=== PATIENT | male | born 1940 | race Caucasian/White ===

== ENCOUNTER → 2017-03-03 | Outpatient (CLI) | payer MEDICARE, MEDICAID ==
[~2017-03-03] MED LIST: ALDACTONE25 MG PO; AUGMENTIN 875875 MG PO; CARDIZEM CD300 MG PO; COUMADIN2 M1 PO; HYDROCODONE BIT1 T11 PO; JANTOVEN4 M1 PO; MASON25 MG PO; SIMVASTATIN10 MG PO; SIMVASTATIN40 MG PO; SPIRONOLACTONE50 M1 PO
[2017-03-03 08:23] LABS: URINE CREATININE TIMED 1558.05 mg/24HRS (950-2490)
[2017-03-03 08:25] LABS: BILIRUBIN NEGATIVE (NEGATIVE); BLOOD NEGATIVE (NEGATIVE); CLARITY CLEAR (CLEAR); COLOR YELLOW (YELLOW); GLUCOSE NEGATIVE (NEGATIVE); KETONE NEGATIVE (NEGATIVE); LEUKO ESTERASE NEGATIVE (NEGATIVE); NITRITE NEGATIVE (NEGATIVE); PH 6.5 (5.0-9.0); PROTEIN 2+ (NEGATIVE)
[2017-03-03 08:31] LABS: EPITHELIAL CELLS 0-2; URINE REFLEX COMMENT NO (NO)
[2017-03-03 08:48] LABS: BUN 13 mg/dl (7-24); CARBON DIOXIDE 28 mmol/L (21-32); CHLORIDE 101 mmol/L (98-107); EST GLOM FILT AFRICAN AMERICAN > 60 ml/min; GLUCOSE 100 mg/dL (65-99); POTASSIUM 4.6 mmol/L (3.5-5.1); SODIUM 142 mmol/L (136-145)
[2017-03-03 09:47] LABS: FOLIC ACID 21.98 ng/mL (>5.38)
== END | disposition home or self-care (01) ==
LOC: LAB 07:42
PROVIDERS: Family Medicine
DX: N28.1 Cyst of kidney, acquired (principal); R80.9 Proteinuria, unspecified; D53.9 Nutritional anemia, unspecified; K76.89 Other specified diseases of liver

== ENCOUNTER → 2017-03-12 | Outpatient (CLI) | payer MEDICARE, MEDICAID | END | disposition home or self-care (01) | LOC: US 03-03 07:40 | DX: N20.1 Calculus of ureter (principal); K80.20 Calculus of gallbladder without cholecystitis without obstruction; K76.0 Fatty (change of) liver, not elsewhere classified; K76.89 Other specified diseases of liver; N32.89 Other specified disorders of bladder ==

== ENCOUNTER → 2017-07-26 | Outpatient (CLI) | payer MEDICARE, MEDICAID | LOC: RAD 10:46 | DX: I51.7 Cardiomegaly (principal); J84.10 Pulmonary fibrosis, unspecified; J11.1 Influenza due to unidentified influenza virus with other respiratory manifestations; J40 Bronchitis, not specified as acute or chronic ==

== ENCOUNTER → 2017-08-16 | Outpatient (CLI) | payer MEDICARE, MEDICAID | END | disposition home or self-care (01) | LOC: CARD 08-04 09:30 | DX: I08.0 Rheumatic disorders of both mitral and aortic valves (principal); I48.2 Chronic atrial fibrillation ==

== ENCOUNTER → 2019-07-07 | Outpatient (CLI) | payer MEDICARE, MEDICAID | END | disposition home or self-care (01) | LOC: LAB 12:28 | DX: I48.20 Chronic atrial fibrillation, unspecified (principal); Z79.01 Long term (current) use of anticoagulants; Z79.899 Other long term (current) drug therapy ==

== ENCOUNTER → 2019-10-30 | Outpatient (CLI) | payer MEDICARE, MEDICAID ==
[~2019-10-30] MED LIST changes: +CIPRO500 MG PO; +COUMADIN4 M2 PO; +Coumadin3 MG PO; +MULTIVITAMINS1 EAC5 PO; +VITAMIN D2400 UNIT PO; +XARE20MG PO
== END | disposition home or self-care (01) ==
LOC: US 08:53
DX: R31.9 Hematuria, unspecified (principal)

== ENCOUNTER 2019-11-13 12:47 | Inpatient (IN) | payer MEDICARE, MEDICAID ==
[~2019-11-13] VITALS: Ht 180.3 cm; Wt 110.3 kg
[~2019-11-13 12:47] MED LIST changes: -CIPRO500 MG PO; -COUMADIN4 M2 PO; -Coumadin3 MG PO; -MULTIVITAMINS1 EAC5 PO; -VITAMIN D2400 UNIT PO; -XARE20MG PO
[2019-11-13 13:06] VITALS: BP 166/96
[2019-11-13 14:15] VITALS: BP 164/94
[2019-11-13 14:29] LABS: BASO % 0.6 % (0.0-1.0); EOS % 0.4 % (1.0-4.0); HEMATOCRIT 44.4 % (42.0-52.0); HEMOGLOBIN 14.8 g/dl (14.0-18.0); LYMPH % 14.9 % (27.0-41.0); MEAN CELL VOLUME 98.2 fl (80.0-94.0); MEAN CORPUSCULAR HGB 32.7 pg (27.0-31.0); MEAN CORPUSCULAR HGB CONC 33.3 g/dl (33.0-37.0); MONO # 0.6 10*3/uL (0.1-1.0); MONO % 8.9 % (3.0-9.0); NEUT # 5.1 10*3/uL (2.3-7.9); NEUT % 74.9 % (47.0-73.0); PLATELET COUNT AUTOMATED 189 10*3/uL (130-400); RED BLOOD COUNT 4.52 10*6/uL (4.50-5.90); RED CELL DISTRI WIDTH 12.5 % (0-14.5); WHITE BLOOD COUNT 6.8 10*3/uL (4.8-10.8)
[2019-11-13 14:39] LABS: INTERNATIONAL NORM RATIO 2.3 (2.0-3.5)
[2019-11-13 14:48] LABS: ALBUMIN 3.4 gm/dl (3.1-4.5); ALKALINE PHOSPHATASE 57 U/L (45-117); BUN 12 mg/dl (7-24); CHLORIDE 101 mmol/L (98-107); CREATININE 0.77 mg/dL (0.70-1.30); POTASSIUM 3.6 mmol/L (3.5-5.1); SGOT/AST 26 IU/L (3-35); SGPT/ALT 39 U/L (12-78); SODIUM 136 mmol/L (136-145); TOTAL PROTEIN 7.7 gm/dL (6.4-8.2); TROPONIN I < 0.015 ng/ml (<0.045)
[2019-11-13 15:30] VITALS: BP 164/94
[2019-11-13 15:50] LABS: BILIRUBIN NEGATIVE (NEGATIVE); BLOOD NEGATIVE (NEGATIVE); CLARITY CLEAR (CLEAR); COLOR YELLOW (YELLOW); GLUCOSE NEGATIVE (NEGATIVE); KETONE 2+ (NEGATIVE); LEUKO ESTERASE NEGATIVE (NEGATIVE); NITRITE NEGATIVE (NEGATIVE); UROBILINOGEN 0.2 E.U./dl (0.2-1.0)
[2019-11-13 15:51] LABS: RBC 0-2 rbc/hpf (0-2)
[2019-11-13 16:45] VITALS: BP 164/90
[2019-11-13] MEDS ORDERED: CIPRO500 MG PO (16:58)
[2019-11-13] MEDS ORDERED: Coumadin3 MG PO (16:59)
[2019-11-13] MEDS ORDERED: COUMADIN4 M2 PO (16:59)
[2019-11-13] MEDS ORDERED: VITAMIN D2400 UNIT PO (17:01)
[2019-11-13] MEDS ORDERED: MULTIVITAMINS1 EAC5 PO (17:01)
--- NOTE | 2019-11-13 17:15 | NUR ---
A 79, admitted to , under the services of RICHIE El MD with a diagnosis of UTI. Chief complaint is weakness. Patient arrived via stretcher from ER. Monitor applied. Initial assessment completed. Vital signs taken and recorded. DR. EMMY WORKMAN,RICHIE notified of admission to the unit. Orders received. See assessment for past medical history, medications and allergies. Patient and/or family oriented to unit. [address] visitation policy reviewed. Clothing/patient valuable form completed. ANCA PATINO
--- NOTE | 2019-11-13 17:29 | NUR ---
Message left with [facility] regarding consult for symptomatic bradycardia. Requested a call back from physician because patients heart rate is 38-40 bpm. Patient states he feels fine.
[2019-11-13 17:30] VITALS: BP 170/88
--- NOTE | 2019-11-13 17:34 | NUR ---
Dr. Stephens returned phone call. Brief history medications labs and heart rate were reviewed. See new orders. Physician to follow up at bedside.
--- NOTE | 2019-11-13 19:00 | NUR ---
ASSUMED CARE FOR THIS PT AT THIS TIME. PT HR IN 40'S. PT ASYMPOTOMATIC. RESTING QUIETLY IN BED. CALL LIGHT IN REACH W/BED ALARM ON.
[2019-11-13 20:00] VITALS: BP 149/69
--- NOTE | 2019-11-13 20:33 | NUR ---
DR. RUIZ'S OFFICE PHONED AND MSG LEFT TO RETURN CALL RE PACER IMPLANT TOMORROW.
--- NOTE | 2019-11-13 20:36 | NUR ---
DR. RUIZ RETURNED CALL AND STATES HE WILL SEE PT TOMORROW AND DECIDE IF PT NEEDS A PACEMAKER BUT TO KEEP PT NPO, DO NOT TREAT THE HIGH BLOOD PRESSURE D/T LOW HEART RATE, AND NOTIFY DR. RUIZ IF HR GOES BELOW 40.
[2019-11-14] VITALS: BP 135/61
--- NOTE | 2019-11-14 01:39 | NUR ---
24 HR chart check completed.
[2019-11-14 06:25] LABS: INTERNATIONAL NORM RATIO 2.1 (2.0-3.5)
--- NOTE | 2019-11-14 07:50 | NUR ---
Received a call from SKINNY Hernandez asking how to complete a V-Incident report. She stated the lab work she ordered to be drawn this morning was cancelled by the lab. The ordered stated the labs were cancelled because the patient was discharged. Per request of Evangelina Lugo completed the V-Incident.
--- NOTE | 2019-11-14 09:00 | NUR ---
Manager Beverage in to talk to patient. Patient states lives at home with friend. There are no steps in the home. Physician: leah hunter Pharmacy: [facility] health services: none Patient's level of ADLs: INDEPENDENT Patient has working utilities: all working DME: none Follow-up physician's appointment after d/c: will be made by hospitalist nurse director upon discharge Does patient want to access PORTAL?: no Discharge plan discussed with patient, he lives at home with girlfriend, he states he is independent in adls and ambulation, he states he will return home when medically stable and denies any home needs, case management will follow. TITA GONG
[2019-11-14] MEDS ORDERED: XARE20MG PO (11:06)
[2019-11-14 12:00] VITALS: BP 152/72
[2019-11-14 16:00] VITALS: BP 160/77
--- NOTE | 2019-11-14 19:05 | NUR ---
Discharge instructions reviewed with patient/family. Patient receptive and verbalizes understanding. Follow-up care arranged. Written instructions given to patient/family. Patient's girlfriend was educated on new prescription and transfer plan for patient tonight. Patient was wheeled from unit by EMS. ANCA PATINO
--- NOTE | 2019-11-14 19:05 | NUR ---
Nurse to nurse report given to 's RN.
== END 2019-11-14 19:05 | disposition short-term general hospital (02) | DRG 309 ==
LOC: ED 12:47 → EDHOLD 15:21 → 4E 15:21 → EDHOLD 16:44 → 4E 16:59
PROVIDERS: Internal Medicine; Internal Medicine Cardiovascular Disease; ADMIT Family Medicine
DX: R00.1 Bradycardia, unspecified (principal); E44.0 Moderate protein-calorie malnutrition; D68.69 Other thrombophilia; I48.20 Chronic atrial fibrillation, unspecified; R53.1 Weakness; I35.0 Nonrheumatic aortic (valve) stenosis; Z96.653 Presence of artificial knee joint, bilateral; I10 Essential (primary) hypertension; E78.2 Mixed hyperlipidemia; Z90.49 Acquired absence of other specified parts of digestive tract; Z82.5 Family history of asthma and other chronic lower respiratory diseases; Z80.0 Family history of malignant neoplasm of digestive organs; Z82.49 Family history of ischemic heart disease and other diseases of the circulatory system; Z82.3 Family history of stroke; Z79.01 Long term (current) use of anticoagulants; Z79.899 Other long term (current) drug therapy; Z68.33 Body mass index [BMI] 33.0-33.9, adult; Z87.440 Personal history of urinary (tract) infections

== ENCOUNTER → 2019-12-07 | Outpatient (CLI) | payer MEDICARE, MEDICAID ==
[~2019-12-07] MED LIST changes: +CIPRO500 MG PO; +COUMADIN4 M2 PO; +Coumadin3 MG PO; +MULTIVITAMINS1 EAC5 PO; +VITAMIN D2400 UNIT PO; +XARE20MG PO
== END | disposition home or self-care (01) ==
LOC: RAD 10:57
DX: M54.9 Dorsalgia, unspecified (principal); R35.0 Frequency of micturition; I87.8 Other specified disorders of veins

== ENCOUNTER → 2019-12-21 | Outpatient (CLI) | payer MEDICARE, MEDICAID | END | disposition home or self-care (01) | LOC: CT 08:10 | DX: K80.20 Calculus of gallbladder without cholecystitis without obstruction (principal); N28.9 Disorder of kidney and ureter, unspecified; R31.9 Hematuria, unspecified; J98.11 Atelectasis; K76.9 Liver disease, unspecified; K44.9 Diaphragmatic hernia without obstruction or gangrene; K42.9 Umbilical hernia without obstruction or gangrene; R59.9 Enlarged lymph nodes, unspecified; M47.815 Spondylosis without myelopathy or radiculopathy, thoracolumbar region; K57.90 Diverticulosis of intestine, part unspecified, without perforation or abscess without bleeding ==

== ENCOUNTER → 2020-01-24 | Day surgery (SDC) | payer MEDICARE, MEDICAID ==
[~2020-01-24] VITALS: Ht 180.3 cm; Wt 99.8 kg
[~2020-01-24] MED LIST changes: +LISINOPRIL5 MG PO; +OCUFLOX 5 ML5 ML INTRAOC; +PRED FORTE5 ML INTRAOC
[2020-01-24 10:05] VITALS: BP 134/87
[2020-01-24 11:40] VITALS: BP 158/76
[2020-01-24 11:55] VITALS: BP 144/88
[2020-01-24 12:10] VITALS: BP 153/91
== END | disposition home or self-care (01) ==
LOC: SDC 12-14 12:30
DX: H25.812 Combined forms of age-related cataract, left eye (principal); I10 Essential (primary) hypertension; I48.91 Unspecified atrial fibrillation; E78.00 Pure hypercholesterolemia, unspecified; E78.5 Hyperlipidemia, unspecified; E66.9 Obesity, unspecified; Z95.5 Presence of coronary angioplasty implant and graft; Z68.30 Body mass index [BMI] 30.0-30.9, adult

== ENCOUNTER → 2020-02-21 | Day surgery (SDC) | payer MEDICARE, MEDICAID ==
[~2020-02-21] VITALS: Ht 180.3 cm; Wt 99.8 kg
[2020-02-21 08:50] VITALS: BP 147/72
[2020-02-21 09:54] VITALS: BP 131/77
[2020-02-21 10:09] VITALS: BP 107/52
[2020-02-21 10:24] VITALS: BP 107/52
== END | disposition home or self-care (01) ==
LOC: SDC 02-16 08:45
DX: H25.811 Combined forms of age-related cataract, right eye (principal); I10 Essential (primary) hypertension; E78.00 Pure hypercholesterolemia, unspecified; Z95.5 Presence of coronary angioplasty implant and graft; Z82.49 Family history of ischemic heart disease and other diseases of the circulatory system; Z82.3 Family history of stroke

== ENCOUNTER → 2020-03-19 | Outpatient (CLI) | payer MEDICARE, MEDICAID ==
[2020-03-19 07:40] LABS: BUN 22 mg/dl (7-24); CREATININE 0.94 mg/dL (0.70-1.30)
== END | disposition home or self-care (01) ==
LOC: CT 07:04 → LAB 07:04 → CT 08:00
PROVIDERS: Urology
DX: N28.1 Cyst of kidney, acquired (principal); K80.20 Calculus of gallbladder without cholecystitis without obstruction; K57.30 Diverticulosis of large intestine without perforation or abscess without bleeding; N28.9 Disorder of kidney and ureter, unspecified; I25.10 Atherosclerotic heart disease of native coronary artery without angina pectoris

== ENCOUNTER → 2020-10-30 | Outpatient (CLI) | payer MEDICARE, MEDICAID | END | disposition home or self-care (01) | LOC: RESCLI 01:45 | PROVIDERS: ATTEND Student in an Organized Health Care Education/Training Program | DX: I10 Essential (primary) hypertension (principal); D53.9 Nutritional anemia, unspecified; E78.5 Hyperlipidemia, unspecified; I49.5 Sick sinus syndrome; I48.91 Unspecified atrial fibrillation; Z79.899 Other long term (current) drug therapy; Z95.0 Presence of cardiac pacemaker; Z23 Encounter for immunization; Z98.890 Other specified postprocedural states; Z87.891 Personal history of nicotine dependence ==

== ENCOUNTER → 2021-02-04 | Outpatient (CLI) | payer MEDICARE, MEDICAID | END | disposition home or self-care (01) | LOC: RESCLI 06:37 | PROVIDERS: ATTEND Internal Medicine | DX: I10 Essential (primary) hypertension (principal); D53.9 Nutritional anemia, unspecified; E78.5 Hyperlipidemia, unspecified; I48.91 Unspecified atrial fibrillation; N30.01 Acute cystitis with hematuria; I48.20 Chronic atrial fibrillation, unspecified; Z79.899 Other long term (current) drug therapy; Z95.0 Presence of cardiac pacemaker; Z98.890 Other specified postprocedural states; Z87.891 Personal history of nicotine dependence ==

== ENCOUNTER → 2021-05-15 | Outpatient (CLI) | payer MEDICARE, MEDICAID | END | disposition home or self-care (01) | LOC: RESCLI 00:18 | PROVIDERS: ATTEND Internal Medicine | DX: Z95.0 Presence of cardiac pacemaker (principal); H61.20 Impacted cerumen, unspecified ear; R42 Dizziness and giddiness; I10 Essential (primary) hypertension; I48.91 Unspecified atrial fibrillation; Z87.891 Personal history of nicotine dependence; Z72.89 Other problems related to lifestyle; Z98.890 Other specified postprocedural states; Z79.899 Other long term (current) drug therapy ==

== ENCOUNTER → 2021-08-01 | Outpatient (CLI) | payer MEDICARE, MEDICAID | END | disposition home or self-care (01) | LOC: RESCLI 08:32 | PROVIDERS: ATTEND Internal Medicine | DX: I48.91 Unspecified atrial fibrillation (principal); Z95.0 Presence of cardiac pacemaker; H61.20 Impacted cerumen, unspecified ear; I10 Essential (primary) hypertension; R42 Dizziness and giddiness; Z98.890 Other specified postprocedural states; Z79.899 Other long term (current) drug therapy ==

== ENCOUNTER 2021-09-30 13:27 | Emergency (ER) | payer MEDICARE, MEDICAID ==
[~2021-09-30] VITALS: Ht 175.2 cm; Wt 108.9 kg
[2021-09-30 14:31] VITALS: BP 130/63
[2021-09-30] MEDS ORDERED: AUGMENTIN 875875 MG PO (18:17)
[2021-10-01] MEDS ORDERED: AUGMENTIN 875875 MG PO (09:23)
== END 2021-09-30 18:42 | disposition home or self-care (01) ==
LOC: ED 13:27
DX: R04.0 Epistaxis (principal); I48.91 Unspecified atrial fibrillation; Z79.899 Other long term (current) drug therapy; Z79.2 Long term (current) use of antibiotics; Z90.49 Acquired absence of other specified parts of digestive tract; Z98.890 Other specified postprocedural states

== ENCOUNTER 2022-06-28 13:24 | Emergency (ER) | payer MEDICARE, MEDICAID ==
[~2022-06-28] VITALS: Ht 180.3 cm; Wt 104.3 kg
[2022-06-28 15:35] VITALS: BP 152/74
== END 2022-06-28 16:52 | disposition home or self-care (01) ==
LOC: ED 13:24
DX: S51.812A Laceration without foreign body of left forearm, initial encounter (principal); Z79.899 Other long term (current) drug therapy; Z90.49 Acquired absence of other specified parts of digestive tract; W22.8XXA Striking against or struck by other objects, initial encounter; Y93.89 Activity, other specified; Y92.89 Other specified places as the place of occurrence of the external cause; Y99.8 Other external cause status

== ENCOUNTER 2022-07-03 09:10 | Emergency (ER) | payer MEDICARE, MEDICAID ==
[~2022-07-03] VITALS: Wt 104.3 kg
[2022-07-03 09:23] VITALS: BP 156/91
== END 2022-07-03 10:20 | disposition home or self-care (01) ==
LOC: ED 09:10
DX: Z48.00 Encounter for change or removal of nonsurgical wound dressing (principal); Z79.899 Other long term (current) drug therapy; Z90.49 Acquired absence of other specified parts of digestive tract

== ENCOUNTER → 2023-07-21 | Outpatient (CLI) | payer MEDICARE, MEDICAID | END | disposition home or self-care (01) | LOC: CARD 00:54 | PROVIDERS: ATTEND Family Medicine | DX: I08.3 Combined rheumatic disorders of mitral, aortic and tricuspid valves (principal) ==

== ENCOUNTER → 2024-02-02 | Outpatient (CLI) | payer MEDICARE, MEDICAID | END | disposition home or self-care (01) | LOC: CARD 08:16 | PROVIDERS: ATTEND Internal Medicine Cardiovascular Disease | DX: I08.3 Combined rheumatic disorders of mitral, aortic and tricuspid valves (principal); Z95.0 Presence of cardiac pacemaker ==

== ENCOUNTER 2024-07-06 18:52 | Emergency (ER) | payer MEDICARE, MEDICAID ==
[~2024-07-06] VITALS: Ht 180.3 cm; Wt 102.1 kg
[2024-07-06 19:37] VITALS: BP 146/74
[2024-07-06] MEDS ORDERED: Ketorolac Tromethamine 30 MG/ML VIAL IM ONE (21:10)
== END 2024-07-06 21:16 | disposition home or self-care (01) ==
LOC: ED 18:52
DX: S20.211A Contusion of right front wall of thorax, initial encounter (principal); I10 Essential (primary) hypertension; M10.9 Gout, unspecified; E78.5 Hyperlipidemia, unspecified; Z90.49 Acquired absence of other specified parts of digestive tract; Z98.890 Other specified postprocedural states; W18.09XA Striking against other object with subsequent fall, initial encounter; Y93.89 Activity, other specified; Y92.009 Unspecified place in unspecified non-institutional (private) residence as the place of occurrence of the external cause; Y99.8 Other external cause status

== ENCOUNTER → 2025-04-17 | Outpatient (CLI) | payer MEDICARE, MEDICAID | END | disposition home or self-care (01) | LOC: CARD 02:20 | PROVIDERS: ATTEND Nurse Practitioner Family | DX: I08.3 Combined rheumatic disorders of mitral, aortic and tricuspid valves (principal) ==

== ENCOUNTER → 2025-09-03 | Day surgery (SDC) | payer MEDICARE, MEDICAID ==
[~2025-09-03] VITALS: Ht 180.3 cm; Wt 100.5 kg
[~2025-09-03] MED LIST changes: +Lactated Ringer's Solution 500 ML IV ONE; +Lidocaine Hydrochloride 2% 5 ML SDV IV ONE; +PROPOFOL 200 MG/20 ML VIAL IV ONE; +Phenylephrine Hydrochloride 1 MG/10 ML SYRINGE IV ONE
[2025-09-03 07:58] VITALS: BP 137/75
[2025-09-03 08:46] VITALS: BP 128/60
[2025-09-03 09:01] VITALS: BP 125/66
[2025-09-03 09:14] VITALS: BP 128/65
== END | disposition home or self-care (01) ==
LOC: SDC 08-31 09:30
PROVIDERS: ATTEND Surgery
DX: K92.1 Melena (principal); I10 Essential (primary) hypertension; I48.91 Unspecified atrial fibrillation; E78.5 Hyperlipidemia, unspecified; Z98.890 Other specified postprocedural states; Z87.891 Personal history of nicotine dependence; Z79.899 Other long term (current) drug therapy